=== PATIENT | female | born 1965 | race Caucasian/White ===

== ENCOUNTER 2016-08-03 19:00 | Emergency (ER) ==
[2016-08-03 19:11] VITALS: BP 127/86; TEMP 98.1; BMI 18.8
[2016-08-03] MEDS ORDERED: MORPHINE 4 MG/ML SYRINGE IM STA (19:40)
[2016-08-03] MEDS ORDERED: ZOFRAN 4 MG/2 ML IM STA (19:40)
--- NOTE | 2016-08-03 19:41 | DI ---
EXAM: Right wrist three-view HISTORY: Trauma COMPARISON: None FINDINGS: There is a mildly displaced fracture distal metadiaphysis fifth metacarpal with moderate volar angulation. Remainder of the bones and joints appear normal. Chondrocalcinosis triangular fi brocartilage IMPERSSION: Fracture fifth metacarpal.
--- NOTE | 2016-08-03 19:41 | DI ---
EXAM: Right hand three-view HISTORY: Trauma COMPARISON: None FINDINGS: There is a mildly displaced fracture distal metadiaphysis fifth metacarpal with moderate volar angulation. Remainder of the bones and joints appear normal. Chondrocalcinosis triangular fib rocartilage IMPERSSION: Fracture fifth metacarpal. Report faxed at time of dictation.
--- NOTE | 2016-08-03 19:43 | ED.PDOC ---
General ED Provider: Dr. ASHUTOSH DIAZ-ER Chief Complaint: Hand Pain/Injury Stated Complaint: i fell yesterday and hurt my hand Time Seen by Physician: 19:10 Mode of Arrival: Walk-In Information Source: Patient Exam Limitations: No limitations Primary Care Provider: THAO MANN Nursing and Triage Documentation Reviewed and Agree: Yes Trauma/Injury Complaint Exam - Trauma Complaint/Exam Location of Pain or Injury: Reports: RUE Mechanism of Injury: Reports: Fall Onset/Duration: 24hrs Symptoms Are: Still present Initial Severity: Mild Current Severity: Moderate Character: Reports: Dull, Aching Aggravating: Reports: Movement, Palpation Alleviating: Reports: None Associated Signs and Symptoms: Reports: Bruising, Swelling, Extremity disuse. Denies: LOC, Confusion, Memory loss, Lethargy, Vomiting, Bleeding, Painful respiration, Hoarseness, Dysphagia, Hemoptysis, Significant blood loss : No Penetrating Injury Risk Factors: Reports: None Related Surgical History: Reports: None Immobilization Removed Post Exam: No Compartment Syndrome Risk Factors: Present: Pain Trauma Findings: Present: Limited ROM Skin Findings: Present: Normal findings Differential Diagnoses: Contusions, Fracture Review of Systems - Review Of Systems Constitutional: Reports: No symptoms Eyes: Reports: No symptoms Ears, Nose, Mouth, Throat: Reports: No symptoms Respiratory: Reports: No symptoms Cardiac: Reports: No symptoms GI: Reports: No symptoms : Reports: No symptoms Musculoskeletal: Reports: Joint pain Skin: Reports: No symptoms Neurological: Reports: No symptoms Endocrine: Reports: No symptoms Hematologic/Lymphatic: Reports: No symptoms All Other Systems: Reviewed and Negative Past Medical History - Past Medical History Previously Healthy: Yes Endocrine: Reports: None Cardiovascular: Reports: Hypertension Respiratory: Reports: None Hematological: Reports: None Gastrointestinal: Reports: None Genitourinary: Reports: None Neuro/Psych: Reports: Anxiety, Depression Musculoskeletal: Reports: Arthritis, Back Pain, Joint Pain Cancer: Reports: None Last Menstrual Period: 20 years ago - Surgical History General Surgical History: Reports: Cholecystectomy, Orthopedic, Back Surgery - Family History Family History: Reports: Unknown - Social History Smoking Status: Current every day smoker Hx Substance Use: No Alcohol Screening: None Lives: With family - Immunizations Tetanus Shot up to Date: Yes Physical Exam - Physical Exam Appearance: Well-appearing Pain Distress: Moderate Eyes: DEE, EOMI, Conjunctiva clear ENT: Ears normal, Nose normal, Oropharynx normal Neck: Supple Respiratory: Airway patent, Breath sounds clear, Breath sounds equal, Respirations nonlabored Cardiovascular: RRR GI/: Soft, Nontender, No masses, Bowel sounds normal, No Organomegaly Musculoskeletal: Limited ROM Skin: Warm, Dry, Normal color Neurological: Sensation intact Psychiatric: Affect appropriate, Mood appropriate Interpretation - Radiology Interpretation Radiology Interpretation By: Radiologist Radiology Results: Positive Procedures - Splinting Location: right hand Hand-Made Type: Orthoglass Splint: Gutter splint Pre-Proc Neuro Vasc Exam: Normal Post-Proc Neuro Vasc Exam: Normal Critical Care Note - Critical Care Note Total Time (mins): 0 Course - Course Orders, Labs, Meds: Orders Category Date Time Status Splint [ED SPLINT APPLICATION] .ONCE EMERGENCY 08/03/16 19:40 Active Morphine Sulfate [Morphine 4 mg/ml Syringe] MEDS 08/03/16 19:40 Stat 4 mg IM ONCE STA Ondansetron HCl/Pf [Zofran 4 mg/2 ml] MEDS 08/03/16 19:40 Stat 4 mg IM ONCE STA HAND, RIGHT 3 VIEWS Stat RADS 08/03/16 19:11 Taken WRIST, RIGHT 3 VIEWS Stat RADS 08/03/16 19:11 Taken Medications Generic Name Dose Route Start Last Admin Trade Name Freq PRN Reason Stop Dose Admin Morphine Sulfate 4 mg 08/03/16 19:40 Morphine 4 Mg/Ml Syringe IM 08/03/16 19:41 ONCE STA Ondansetron HCl 4 mg 08/03/16 19:40 Zofran 4 Mg/2 Ml IM 08/03/16 19:41 ONCE STA Vital Signs: Temp Pulse Resp BP Pulse Ox 08/03/16 19:02 98.1 F 92 H 18 127/86 98 Departure - Departure Time of Disposition: 19:44 Disposition: HOME SELF-CARE Discharge Problem: Boxer's fracture Qualifiers: Encounter type: initial encounter Fracture type: closed Qualifier Code: ( S62.309A) Unspecified fracture of unspecified metacarpal bone, initial encounter for closed fracture Instructions: Boxer Fracture (ED) Condition: Good Pt referred to PMD for follow-up: Yes Additional Instructions: stay in splint--keep elevated on pillows--norco 7.5mg q 4hrs prn pain #10--f/u with orthopedic walk in clinic on friday Allergies/Adverse Reactions: Allergies codeine Adverse Reaction (Verified 08/03/16 19:12) cortisone Adverse Reaction (Verified 08/03/16 19:12) Penicillins Adverse Reaction (Verified 08/03/16 19:12) Sulfa (Sulfonamide Antibiotics) Adverse Reaction (Verified 08/03/16 19:12) Home Medications: Ambulatory Orders Methadone HCl [Methadone] 10 mg PO Q8HR PRN 03/29/15 Gabapentin 600 mg PO TID 11/16/15 Dextroamphetamine/Amphetamine [Adderall 30 Mg Tablet] 30 mg PO DAILY #30 Indomethacin [Indocin] 25 mg PO TIDWM #30 capsule 03/20/16 Clonazepam [Klonopin] 0.5 mg PO TID #90 05/23/16 Disposition Discussed With: Patient, Family
== END 2016-08-03 20:30 | disposition home or self-care (01) ==
LOC: ED 19:00
DX: S62.336A Displaced fracture of neck of fifth metacarpal bone, right hand, initial encounter for closed fracture (principal); W19.XXXA Unspecified fall, initial encounter; F17.210 Nicotine dependence, cigarettes, uncomplicated
CPT/HCPCS: 96372; 99284

== ENCOUNTER 2016-09-12 17:11 | Outpatient (CLI) | END 2016-09-12 17:12 | disposition home or self-care (01) | LOC: AMBL 17:11 | PROVIDERS: ATTEND Family Medicine | DX: R40.4 Transient alteration of awareness (principal); Z98.890 Other specified postprocedural states ==

== ENCOUNTER 2017-02-09 16:32 | Emergency (ER) ==
[2017-02-09 16:33] VITALS: BMI 18.8
[2017-02-09 16:36] VITALS: BP 119/79; TEMP 99.2
[2017-02-09] MEDS ORDERED: TORADOL IM STA (16:41)
--- NOTE | 2017-02-09 16:44 | ED.PDOC ---
General ED Provider: Dr. ASHUTOSH DIAZ-ER Chief Complaint: Knee Pain/Injury Stated Complaint: my knee is holding fluid Time Seen by Physician: 16:35 Mode of Arrival: Walk-In Information Source: Patient, Family Exam Limitations: No limitations Primary Care Provider: THAO MANN Nursing and Triage Documentation Reviewed and Agree: Yes Musculoskeletal Complaint Exam - Knee Pain Complaint/Exam Mechanism of Injury: Reports: No known trauma Onset/Duration: 2 days Symptoms Are: Still present Onset of Pain: Reports: Immediate Initial Severity: Mild Current Severity: Mild Location: Reports: Discrete (right knee) Character: Reports: Dull, Aching, Throbbing, Stiffness Alleviating: Reports: Rest, Position Aggravating: Reports: Movement, Weight bearing, Prolonged standing, Stairs Associated Signs and Symptoms: Reports: Swelling. Denies: Redness, Bruising, Fever, Weakness, Numbness, Tingling Able to Bear Weight: Yes Related History: Reports: Similar episode (had same knee) Septic Arthritis Risk Factors: Reports: None Gout Risk Factors: Reports: >40 years old, Male Knee Findings: Present: Swelling, Tenderness, Limited range of motion Tenderness: Present: Pre-patellar Natasha Test Positive: No Delfino Test Positive: No Limited Range of Motion: Present: Active, Passive Differential Diagnoses: Bursitis, Sprain, Strain Review of Systems - Review Of Systems Constitutional: Reports: No symptoms Eyes: Reports: No symptoms Ears, Nose, Mouth, Throat: Reports: No symptoms Respiratory: Reports: No symptoms Cardiac: Reports: No symptoms GI: Reports: No symptoms : Reports: No symptoms Musculoskeletal: Reports: Joint pain, Joint swelling Skin: Reports: No symptoms Neurological: Reports: No symptoms Endocrine: Reports: No symptoms Hematologic/Lymphatic: Reports: No symptoms All Other Systems: Reviewed and Negative Past Medical History - Past Medical History Previously Healthy: Yes Endocrine: Reports: None Cardiovascular: Reports: Hypertension Respiratory: Reports: None Hematological: Reports: None Gastrointestinal: Reports: None Genitourinary: Reports: None Neuro/Psych: Reports: Anxiety, Depression Musculoskeletal: Reports: Arthritis, Back Pain, Joint Pain Cancer: Reports: None Last Menstrual Period: n/a - Surgical History General Surgical History: Reports: Cholecystectomy, Orthopedic, Back Surgery - Family History Family History: Reports: Unknown - Social History Smoking Status: Current every day smoker Hx Substance Use: No Alcohol Screening: None Physical Exam - Physical Exam Appearance: Well-appearing, No pain distress, Well-nourished Pain Distress: Moderate Eyes: DEE, EOMI, Conjunctiva clear ENT: Ears normal, Nose normal, Oropharynx normal Neck: Supple Respiratory: Airway patent, Breath sounds clear, Breath sounds equal, Respirations nonlabored Cardiovascular: RRR GI/: Soft, Nontender, No masses, Bowel sounds normal, No Organomegaly Musculoskeletal: Limited ROM Skin: Warm, Dry, Normal color Neurological: Sensation intact, Motor intact, Reflexes intact, Cranial nerves intact, Alert, Oriented Psychiatric: Affect appropriate, Mood appropriate Interpretation - Radiology Interpretation Radiology Interpretation By: ED Physician Radiology Results: Negative Critical Care Note - Critical Care Note Total Time (mins): 0 Course - Course Orders, Labs, Meds: Orders Category Date Time Status Ketorolac Tromethamine [Toradol] MEDS 02/09/17 16:41 Discontinued 60 mg IM ONCE STA KNEE, RIGHT 4 VIEWS Stat RADS 02/09/17 16:40 Taken Medications Discontinued Medications Generic Name Dose Route Start Last Admin Trade Name Freq PRN Reason Stop Dose Admin Ketorolac Tromethamine 60 mg 02/09/17 16:41 02/09/17 16:47 Toradol IM 02/09/17 16:42 Not Given ONCE STA Vital Signs: Temp Pulse Resp BP Pulse Ox 02/09/17 16:33 99.2 F 103 H 20 119/79 98 Departure - Departure Time of Disposition: 17:07 Disposition: HOME SELF-CARE Discharge Problem: Knee pain Instructions: Knee Pain (ED) Condition: Good Pt referred to PMD for follow-up: Yes Additional Instructions: voltaren gel apply to the right knee bid --f/u with pcp and consider orthopedics consult Allergies/Adverse Reactions: Allergies codeine Adverse Reaction (Verified 02/09/17 16:36) cortisone Adverse Reaction (Verified 02/09/17 16:36) Penicillins Adverse Reaction (Verified 02/09/17 16:36) Sulfa (Sulfonamide Antibiotics) Adverse Reaction (Verified 02/09/17 16:36) Home Medications: Ambulatory Orders Methadone HCl [Methadone] 10 mg PO Q8HR PRN 03/29/15 Gabapentin 600 mg PO TID 11/16/15 Disposition Discussed With: Patient, Family
--- NOTE | 2017-02-09 17:13 | DI ---
EXAM: Four views of the right knee. History: Right knee pain and swelling. Comparison: Right knee radiograph 03/20/2016 Findings: No acute fracture or dislocation. Chondrocalcinosis again noted. Mild tricompartmental j oint space narrowing. There are tiny osteophytes. Impression: 1. No acute osseous abnormality. 2. Chondrocalcinosis. 3. Mild arthritis.
== END 2017-02-09 17:25 | disposition home or self-care (01) ==
LOC: ED 16:32
DX: M25.561 Pain in right knee (principal); F17.210 Nicotine dependence, cigarettes, uncomplicated
CPT/HCPCS: 99283

== ENCOUNTER 2017-02-27 10:58 | Emergency (ER) | payer OTHER ==
[2017-02-27 11:00] VITALS: BMI 18.8
[2017-02-27 11:14] VITALS: BP 134/88; TEMP 98.9
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
[2017-02-27] MEDS: ZOFRAN ODT PO STA (12:12)
[2017-02-27] MEDS: DILAUDID 1 MG/ML SYRINGE IM STA (12:13)
--- NOTE | 2017-02-27 12:35 | DI ---
Exam: Four x-rays of the right knee. Comparison: 02/09/2017. Reason for exam: Right knee swelling and pain. FINDINGS: No acute fracture or dislocation. There is tricompartmental arthrosis with chondrocalcino sis. No unexplained calcific soft tissue density or radiopaque retained foreign body. There is a new finding of a large joint effusion with patellar displacement. Impression: 1. No acute fracture or dislocation in the right knee. 2. Tricompartmental arthrosis with chondrocalcinosis. 3. New large joint effusion.
[2017-02-27] MEDS: DEPO-MEDROL IM STA (14:22)
== END 2017-02-27 14:58 | disposition home or self-care (01) ==
LOC: ED 10:58
DX: M25.561 Pain in right knee (principal); M25.461 Effusion, right knee; M19.90 Unspecified osteoarthritis, unspecified site; F17.210 Nicotine dependence, cigarettes, uncomplicated
CPT/HCPCS: 36415; 84550; 86038; 86140; 86430; 96372; 99282

== ENCOUNTER 2017-06-09 15:22 | Outpatient (CLI) | END 2017-06-09 15:23 | disposition home or self-care (01) | LOC: CAR 15:22 | PROVIDERS: ATTEND Nurse Practitioner | DX: Z51.81 Encounter for therapeutic drug level monitoring (principal); Z79.891 Long term (current) use of opiate analgesic; F19.20 Other psychoactive substance dependence, uncomplicated | CPT/HCPCS: 93005; 93010 ==

== ENCOUNTER 2018-05-26 16:34 | Emergency (ER) | payer OTHER ==
[2018-05-26 16:40] VITALS: TEMP 98.3; BMI 19.0
[2018-05-26 18:01] VITALS: BP 117/79
--- NOTE | 2018-05-26 18:05 | ED.PDOC ---
General ED Provider: Dr. ASHUTOSH SANCHEZ Chief Complaint: Non-specific Complaint Stated Complaint: Hs of Shingles Rt mid lat chest wall; Having considerable pain and claims she is out of pain meds. Onset 2 weeks. Taking zovirax. On gabapentin for chronic back pain Time Seen by Physician: 17:10 Mode of Arrival: Walk-In Information Source: Patient Exam Limitations: No limitations Primary Care Provider: THAO MANN Nursing and Triage Documentation Reviewed and Agree: Yes Does patient meet sepsis criteria?: No System Inflammatory Response Syndrome: Not Applicable Sepsis Protocol: For patient's 13 years and over: Temp is 96.8 and below OR 101 and greater Pulse >90 BPM Resp >20/minute Acutely Altered Mental Status Are patient's symptoms suggestive of a new infection, such as: -Pneumonia -Skin, Soft Tissue -Endocarditis -UTI -Bone, Joint Infection -Implantable Device -Acute Abdominal Infection -Wound Infection -Meningitis -Blood Stream Catheter Infection -Unknown Review of Systems - Review Of Systems Constitutional: Reports: Malaise, Weakness Eyes: Reports: No symptoms Ears, Nose, Mouth, Throat: Reports: No symptoms Respiratory: Reports: No symptoms Cardiac: Reports: No symptoms GI: Reports: No symptoms : Reports: No symptoms Musculoskeletal: Reports: Back pain Skin: Reports: Dryness, Lesions, Rash Neurological: Reports: No symptoms Endocrine: Reports: No symptoms Hematologic/Lymphatic: Reports: No symptoms All Other Systems: Reviewed and Negative Past Medical History - Past Medical History Previously Healthy: Yes Endocrine: Reports: None Cardiovascular: Reports: Hypertension Respiratory: Reports: None Hematological: Reports: None Gastrointestinal: Reports: None Genitourinary: Reports: None Neuro/Psych: Reports: Anxiety, Depression, Other (Hx of opioid addiction) Musculoskeletal: Reports: Arthritis, Back Pain, Joint Pain Cancer: Reports: None Last Menstrual Period: hysterectomy - Surgical History General Surgical History: Reports: Cholecystectomy, Orthopedic, Back Surgery, Other ([facility]) - Family History Family History: Reports: Unknown - Social History Smoking Status: Current every day smoker, Light tobacco smoker Hx Substance Use: No Alcohol Screening: None - Immunizations Influenza Vaccine within 12 Months: No Pneumococcal Vaccine up to Date: No Physical Exam - Physical Exam Appearance: Ill-appearing, Thin Ill-appearing: Mild Pain Distress: Mild Eyes: DEE, EOMI, Conjunctiva clear ENT: Ears normal, Nose normal, Oropharynx normal Neck: Supple Respiratory: Airway patent, Breath sounds clear, Breath sounds equal, Respirations nonlabored Cardiovascular: RRR, Pulses normal, No rub, No murmur GI/: Soft, Nontender, No masses, Bowel sounds normal, No Organomegaly Musculoskeletal: Normal strength, ROM intact, No edema, No calf tenderness Skin: Warm, Dry, Normal color Neurological: Sensation intact, Motor intact, Reflexes intact, Cranial nerves intact, Alert, Oriented Psychiatric: Affect appropriate, Mood appropriate Critical Care Note - Critical Care Note Total Time (mins): 0 Course - Course Vital Signs: Temp Pulse Resp BP Pulse Ox 05/26/18 18:01 84 117/79 05/26/18 16:34 98.3 F 95 H 20 148/104 H 97 Departure - Departure Time of Disposition: 18:00 Disposition: HOME SELF-CARE Discharge Problem: Herpes zoster, HZV (herpes zoster virus) post herpetic neuralgia Instructions: Shingles (ED), Paresthesia (ED) Condition: Fair Pt referred to PMD for follow-up: Yes IPMP verified?: No Additional Instructions: Take additonal 1/2 tab of Gabapenitin mid day for additional pain control Take Lortab for severe pain involving shingles Prescriptions: Hydrocodone Bit/Acetaminophen [Lortab 5-500] 1 tab PO QID #10 tablet Allergies/Adverse Reactions: Allergies codeine Adverse Reaction (Verified 05/26/18 16:42) cortisone Adverse Reaction (Verified 05/26/18 16:42) ketorolac [From Toradol] Adverse Reaction (Verified 05/26/18 16:42) Penicillins Adverse Reaction (Verified 05/26/18 16:42) Sulfa (Sulfonamide Antibiotics) Adverse Reaction (Verified 05/26/18 16:42) Home Medications: Ambulatory Orders Ibuprofen 200 mg PO BID PRN 02/27/17 Gabapentin 600 mg PO BID 05/21/18 Hydrocodone/Acetaminophen [Hydrocodone-Acetamin 10-325 Mg] 1 each PO TID Hydrocodone Bit/Acetaminophen [Lortab 5-500] 1 tab PO QID #10 tablet 05/26/18 Disposition Discussed With: Patient, Family Skin Complaint Exam - Skin Rash/Itching Complaint/Exam Onset/Duration: 2 wk Symptoms Are: Still present Initial Severity: Severe Current Severity: Mild Location: Rt ant lateral chest wall Potential Exposures: Reports: Other (shingles) Aggravating: Reports: Clothing Alleviating: Reports: None Associated Signs and Symptoms: Denies: Difficulty breathing, Fever, Chills Skin Findings: Present: Vesicles (dried/ scabbed and no surrounding erythrema or tenderness to touch) Differential Diagnoses: Varicella Zoster
== END 2018-05-26 18:14 | disposition home or self-care (01) ==
LOC: ED 16:34
DX: B02.29 Other postherpetic nervous system involvement (principal); I10 Essential (primary) hypertension; Z79.899 Other long term (current) drug therapy; F17.210 Nicotine dependence, cigarettes, uncomplicated
CPT/HCPCS: 99282

== ENCOUNTER 2019-01-02 09:03 | Emergency (ER) ==
[2019-01-02 09:12] VITALS: BP 160/99; TEMP 98.3; BMI 17.6
--- NOTE | 2019-01-02 09:52 | ED.PDOC ---
General ED Provider: Dr. ASHUTOSH SANCHEZ Chief Complaint: Ankle Pain/Injury Stated Complaint: Twisted Lt Ankle while mowing grass on Friday. Stepped into a hole in the yard, felt discomfort but kept on mowing. Time Seen by Physician: 09:40 Mode of Arrival: Walk-In Information Source: Patient Exam Limitations: No limitations Primary Care Provider: THAO MANN Nursing and Triage Documentation Reviewed and Agree: Yes Does patient meet sepsis criteria?: No System Inflammatory Response Syndrome: Not Applicable Sepsis Protocol: For patient's 13 years and over: Temp is 96.8 and below OR 101 and greater Pulse >90 BPM Resp >20/minute Acutely Altered Mental Status Are patient's symptoms suggestive of a new infection, such as: -Pneumonia -Skin, Soft Tissue -Endocarditis -UTI -Bone, Joint Infection -Implantable Device -Acute Abdominal Infection -Wound Infection -Meningitis -Blood Stream Catheter Infection -Unknown Musculoskeletal Complaint Exam - Ankle/Foot Complaint/Exam Location of Injury: Reports: Left, Ankle, Foot Mechanism of Injury: Reports: Trauma Onset/Duration: 2 days Symptoms Are: Reports: Still present Onset of Pain: Reports: Immediate Initial Severity: Moderate Current Severity: Moderate Location: Reports: Diffuse Character: Reports: Sharp, Aching, Throbbing, Stiffness Alleviating: Reports: Rest Aggravating: Reports: Movement, Weight bearing Able to Bear Weight: Yes (but difficult) Associated Signs and Symptoms: Reports: Swelling (from area superior to medial malleoli extending medial mid foot), Weakness Related History: Denies: Similar episode Gout Risk Factors: Reports: None Related Surgical History: Reports: None Lower Extremity Findings: Present: Swelling, Erythema, Warmth, Other joint pain , Tenderness, Limited range of motion Achilles Tendon Abnormality: No Tenderness: Present: Medial malleolus, Heel, Midfoot Limited Range of Motion: Present: Inversion, Eversion, Dorsiflexion Ankle/Foot Picture: 1 - area of reddness and swellin g 2 - point tenderness Differential Diagnosis: Gout, Sprain, Strain Review of Systems - Review Of Systems Constitutional: Reports: No symptoms Eyes: Reports: No symptoms Ears, Nose, Mouth, Throat: Reports: No symptoms Respiratory: Reports: No symptoms Cardiac: Reports: No symptoms GI: Reports: No symptoms : Reports: No symptoms Musculoskeletal: Reports: Joint pain, Joint swelling Skin: Reports: No symptoms Neurological: Reports: No symptoms Endocrine: Reports: No symptoms Hematologic/Lymphatic: Reports: No symptoms All Other Systems: Reviewed and Negative Past Medical History - Past Medical History Previously Healthy: Yes Endocrine: Reports: None Cardiovascular: Reports: Hypertension Respiratory: Reports: None Hematological: Reports: None Gastrointestinal: Reports: None Genitourinary: Reports: None Neuro/Psych: Reports: Anxiety, Depression, Other (Hx of opioid addiction) Musculoskeletal: Reports: Arthritis, Back Pain, Joint Pain Cancer: Reports: None Last Menstrual Period: n/a - Surgical History General Surgical History: Reports: Cholecystectomy, Orthopedic, Back Surgery, Other ([facility]) - Family History Family History: Reports: Unknown - Social History Smoking Status: Current every day smoker Hx Substance Use: No Alcohol Screening: None - Immunizations Tetanus Shot up to Date: Yes Influenza Vaccine within 12 Months: No Pneumococcal Vaccine up to Date: No Physical Exam - Physical Exam Appearance: Thin Ill-appearing: Mild Pain Distress: Moderate Eyes: DEE, EOMI, Conjunctiva clear ENT: Ears normal, Nose normal, Oropharynx normal Neck: Supple Respiratory: Airway patent, Breath sounds clear, Breath sounds equal, Respirations nonlabored Cardiovascular: RRR, Pulses normal, No rub, No murmur GI/: Soft, Nontender, No masses, Bowel sounds normal, No Organomegaly Musculoskeletal: Normal strength, ROM intact, No edema, No calf tenderness Skin: Warm, Dry, Normal color Neurological: Sensation intact, Motor intact, Reflexes intact, Cranial nerves intact, Alert, Oriented Psychiatric: Affect appropriate, Mood appropriate Critical Care Note - Critical Care Note Total Time (mins): 0 Course - Course Vital Signs: Temp Pulse Resp BP Pulse Ox 01/02/19 09:05 98.3 F 101 H 18 160/99 H 95 Departure - Departure Time of Disposition: 10:35 Disposition: HOME SELF-CARE Discharge Problem: Ankle sprain, Hx of fracture of tibia, History of open reduction and internal fixation (ORIF) procedure Instructions: Ankle Sprain (ED), Ankle Stirrup Splint (ED) Condition: Stable Pt referred to PMD for follow-up: Yes (5-7 days) IPMP verified?: No Additional Instructions: Crutches non weight Bearing ambulation and continue use until free of pain May take Ibuprofen or Acetaminophen for pain Use Ice to apply to the area of injury three times daily for 30 min periods of time See PCP in 5-7 days Allergies/Adverse Reactions: Allergies codeine Adverse Reaction (Verified 01/02/19 09:19) cortisone Adverse Reaction (Verified 01/02/19 09:19) ketorolac [From Toradol] Adverse Reaction (Verified 01/02/19 09:19) Penicillins Adverse Reaction (Verified 01/02/19 09:19) Sulfa (Sulfonamide Antibiotics) Adverse Reaction (Verified 01/02/19 09:19) Home Medications: Ambulatory Orders Ibuprofen 200 mg PO BID PRN 02/27/17 Disposition Discussed With: Patient, Family (cousin who accompanied patient)
[2019-01-02] MEDS ORDERED: MOTRIN PO STA (09:59)
--- NOTE | 2019-01-02 10:21 | DI ---
Exam: Left ankle three-view History: Ankle pain and injury Findings / impression: Prior internal fixation of the distal tibia diaphysis. Hardware is intact wi thout evidence of loosening. 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 No acute bony or articular abnormalities are seen.
== END 2019-01-02 11:15 | disposition home or self-care (01) ==
LOC: ED 09:03
DX: S93.402A Sprain of unspecified ligament of left ankle, initial encounter (principal); W18.42XA Slipping, tripping and stumbling without falling due to stepping into hole or opening, initial encounter; Z87.81 Personal history of (healed) traumatic fracture; F17.210 Nicotine dependence, cigarettes, uncomplicated
CPT/HCPCS: 99283

== ENCOUNTER 2019-01-24 15:22 | Outpatient (CLI) ==
[2019-01-24 15:41] VITALS: BMI 17.9
== END 2019-01-24 15:26 | disposition critical access hospital (66) ==
LOC: AMBL 15:22
PROVIDERS: ATTEND Emergency Medicine
DX: M54.2 Cervicalgia (principal); M54.9 Dorsalgia, unspecified; M79.601 Pain in right arm